=== PATIENT | male | born 1990 | race Caucasian/White ===

== ENCOUNTER 2017-11-07 15:50 | Emergency (ER) | payer OTHER, BC ==
[~2017-11-07] VITALS: Ht 182.9 cm; Wt 115.0 kg
[2017-11-07 15:59] VITALS: TEMP 37; Ht 182.9 cm; Wt 115.0 kg
[2017-11-07] MEDS ORDERED: SODIUM CHLORIDE 0.9% 1000ML 1,000 ML IV STA (16:29)
--- NOTE | 2017-11-07 16:32 | EMERGENCY ROOM VISIT NOTE ---
History Report prepared by Paz: Delia Moore Under the Supervision of: Dr. Erich Rios M.D. First contact with patient: 16:09 Chief Complaint: FALL Stated Complaint: FALL AT WORK. 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 He reports he put his foot down and it slide off the track and he slipped down about "12 inches" but landed on his bottom. The patient states his bottom hurts. He notes his leg was not hurting at the time and there were no cuts. The patient also states that a few days prior to his fall, he fell off a trailer and landed on his left leg. He is accompanied by his mother and father who report that his leg "doubled in size" last night. Walking worsens his pain. He denies any nausea, vomiting, diarrhea, fevers or chills. 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 A total of ten systems were reviewed and were otherwise negative. Past Medical & Surgical Surgical Problems: (1) Hx of tonsillectomy Family History FHx: cancer FHx: diabetes mellitus High blood pressure Social History Smoking Status: Never Smoker Smokeless Tobacco Use: No Alcohol Use: other (a little) Housing Status: lives alone Current/Historical Medications Scheduled Enoxaparin (Lovenox), 120 MG SC BID Allergies Coded Allergies: No Known Allergies (Unverified , 11/07/17) Physical Exam Vital Signs Date Time Temp Pulse Resp B/P (MAP) Pulse Ox O2 Delivery O2 Flow Rate FiO2 11/07/17 19:46 67 18 126/78 98 11/07/17 18:21 64 18 119/79 97 Room Air 11/07/17 17:01 56 11/07/17 15:59 37.0 83 20 132/77 100 Physical Exam GENERAL: Awake, alert, well-appearing, in no distress HENT: Normocephalic, atraumatic. Oropharynx unremarkable. EYES: Normal conjunctiva. Sclera non-icteric. NECK: Supple. No nuchal rigidity. FROM. No JVD. RESPIRATORY: Clear to auscultation. CARDIAC: Regular rate, normal rhythm. Extremities warm and well perfused. Pulses equal. ABDOMEN: Soft, non-distended. No tenderness to palpation. No rebound or guarding. No masses. RECTAL: Deferred. MUSCULOSKELETAL: Chest examination reveals no tenderness. The back is symmetrical on inspection without obvious abnormality. There is no CVA tenderness to palpation. No joint edema. LOWER EXTREMITIES: 3+ edema throughout the lower leg, no tenderness with modeling of the skin throughout, no crepitus, scattered areas of old skin abrasions, no acute lacerations or abrasions, distal motor sensory intact, triphasic in PT, DP, and popliteal a. NEURO: Normal sensorium. Distal motor sensory intact SKIN: No rash or jaundice noted. Medical Decision & Procedures ER Provider Diagnostic Interpretation: Radiology results as stated below per my review and radiologist interpretation: L TIBIA/FIBULA 2 VIEWS ROUTINE CLINICAL HISTORY: Pain and swelling following fall. COMPARISON: None FINDINGS: There is no acute fracture of the left tibia or fibula. Alignment of the left knee and ankle appears anatomic. IMPRESSION: No acute fracture of the left tibia or fibula. Electronically signed by: Garrison Murrell M.D. 11/07/2017 6:09 PM Dictated Date/Time: 11/07/2017 6:03 PM LEFT LOWER EXTREMITY VENOUS DOPPLER CLINICAL HISTORY: pain swelling mottling fall COMPARISON STUDY: No previous studies for comparison. TECHNIQUE: Sonography of the deep venous system of the left lower extremity was performed. Compression and augmentation were evaluated. FINDINGS: The left common femoral and superficial femoral veins are noncompressible and contain thrombus. Vessels are expanded. There is minimal flow within these vessels. IMPRESSION: Deep venous thrombus within the left common femoral and superficial femoral veins which is likely acute. Electronically signed by: Garrison Murrell M.D. 11/07/2017 6:16 PM L PELVIS/UNILATERAL HIP 2-3VIEWS CLINICAL HISTORY: Pain and swelling following fall. COMPARISON: None FINDINGS: The sacroiliac joints and symphysis pubis are intact. There is no acute fracture within the pelvis or the hips. Left hip joint space is preserved. There is mild osteophytosis of the left hip. There is apparent loss of height of the superior endplate of a lower lumbar vertebral body. IMPRESSION: 1. No acute fracture within the pelvis or hips. 2. Apparent age indeterminate loss of height of a vertebral body within the lower lumbar spine. Electronically signed by: Garrison Murrell M.D. 11/07/2017 6:07 PM Dictated Date/Time: 11/07/2017 6:05 PM L FEMUR 2 VIEWS ROUTINE CLINICAL HISTORY: pain swelling fall COMPARISON: None FINDINGS: There is no acute fracture of the left femur. Alignment of the left hip and knee appears anatomic. IMPRESSION: No acute fracture of the left femur. Electronically signed by: Garrison Murrell M.D. 11/07/2017 6:08 PM Dictated Date/Time: 11/07/2017 6:07 PM CHEST ONE VIEW PORTABLE CLINICAL HISTORY: Evaluate Fever/Sepsis. Recent fall. COMPARISON STUDY: No previous studies for comparison. FINDINGS: Lung volumes are normal. No pneumothorax or pleural effusion is noted. Cardiac size is normal. Mediastinal contours are normal. There is no evidence for pulmonary edema. IMPRESSION: No acute cardiopulmonary findings. Electronically signed by: Garrison Murrell M.D. 11/07/2017 6:04 PM Dictated Date/Time: 11/07/2017 6:04 PM Laboratory Results 11/07/17 16:55 Red Blood Count 4.75, Mean Corpuscular Volume 92.4, Mean Corpuscular Hemoglobin 32.2, Mean Corpuscular Hemoglobin Concent 34.9, Mean Platelet Volume 11.1, Neutrophils (%) (Auto) 58.9, Lymphocytes (%) (Auto) 21.0, Monocytes (%) (Auto) 11.6, Eosinophils (%) (Auto) 7.9, Basophils (%) (Auto) 0.2, Neutrophils # (Auto ) 5.03, Lymphocytes # (Auto) 1.79, Monocytes # (Auto) 0.99, Eosinophils # (Auto ) 0.67, Basophils # (Auto) 0.02 11/07/17 16:55 Test 11/07/17 16:55 11/07/17 17:02 11/07/17 19:00 White Blood Count 8.53 K/uL (4.8-10.8) Red Blood Count 4.75 M/uL (4.7-6.1) Hemoglobin 15.3 g/dL (14.0-18.0) Hematocrit 43.9 % (42-52) Mean Corpuscular Volume 92.4 fL (80-100) Mean Corpuscular Hemoglobin 32.2 pg (25-34) Mean Corpuscular Hemoglobin Concent 34.9 g/dl (32-36) Platelet Count 191 K/uL (130-400) Mean Platelet Volume 11.1 fL (7.4-10.4) Neutrophils (%) (Auto) 58.9 % Lymphocytes (%) (Auto) 21.0 % Monocytes (%) (Auto) 11.6 % Eosinophils (%) (Auto) 7.9 % Basophils (%) (Auto) 0.2 % Neutrophils # (Auto) 5.03 K/uL (1.4-6.5) Lymphocytes # (Auto) 1.79 K/uL (1.2-3.4) Monocytes # (Auto) 0.99 K/uL (0.11-0.59) Eosinophils # (Auto) 0.67 K/uL (0-0.5) Basophils # (Auto) 0.02 K/uL (0-0.2) RDW Standard Deviation 42.8 fL (36.4-46.3) RDW Coefficient of Variation 12.7 % (11.5-14.5) Immature Granulocyte % (Auto) 0.4 % Immature Granulocyte # (Auto) 0.03 K/uL (0.00-0.02) Erythrocyte Sedimentation Rate 6 mm/hr (0-14) Prothrombin Time 10.1 SECONDS (9.0-12.0) Prothromb Time International Ratio 1.0 (0.9-1.1) Activated Partial Thromboplast Time 23.8 SECONDS (21.0-31.0) Partial Thromboplastin Ratio 0.9 Anion Gap 5.0 mmol/L (3-11) Est Creatinine Clear Calc Drug Dose 128.6 ml/min Estimated GFR () 103.1 Estimated GFR (Non- 88.9 BUN/Creatinine Ratio 13.5 (10-20) Lactic Acid Level 1.3 mmol/L (0.4-2.0) Calcium Level 9.0 mg/dl (8.5-10.1) Total Bilirubin 0.4 mg/dl (0.2-1) Direct Bilirubin 0.1 mg/dl (0-0.2) Aspartate Amino Transf (AST/SGOT) 19 U/L (15-37) Alanine Aminotransferase (ALT/SGPT) 34 U/L (12-78) Alkaline Phosphatase 65 U/L (45-117) Total Creatine Kinase 327 U/L (39-308) Troponin I < 0.015 ng/ml (0-0.045) C-Reactive Protein 1.06 mg/dl (0-0.29) Pro-B-Type Natriuretic Peptide 90 pg/ml (0-450) Total Protein 7.6 gm/dl (6.4-8.2) Albumin 4.1 gm/dl (3.4-5.0) Lipase 220 U/L (73-393) Ethyl Alcohol mg/dL < 3.0 mg/dl (0-3) Urine Color YELLOW Urine Appearance CLEAR (CLEAR) Urine pH 5.0 (4.5-7.5) Urine Specific Burton 1.026 (1.000-1.030) Urine Protein NEG (NEG) Urine Glucose (UA) NEG (NEG) Urine Ketones TRACE (NEG) Urine Occult Blood NEG (NEG) Urine Nitrite NEG (NEG) Urine Bilirubin NEG (NEG) Urine Urobilinogen NEG (NEG) Urine Leukocyte Esterase NEG (NEG) Urine WBC (Auto) 1-5 /hpf (0-5) Urine RBC (Auto) 0-4 /hpf (0-4) Urine Hyaline Casts (Auto) 1-5 /lpf (0-5) Urine Epithelial Cells (Auto) 5-10 /lpf (0-5) Urine Bacteria (Auto) NEG (NEG) Laboratory results reviewed by me Medications Administered Medications (Trade) Dose Ordered Sig/Sudha Route Start Time Stop Time Status Last Admin Dose Admin Sodium Chloride 1,000 ml @ 999 mls/hr Q1H1M STAT IV 11/07/17 16:29 11/07/17 17:29 DC 11/07/17 16:59 999 MLS/HR Miscellaneous (Lovenox Teaching Kit) 1 ea NOW STAT N/A 11/07/17 18:21 11/07/17 18:23 DC 11/07/17 19:45 1 EA Oxycodone/ Acetaminophen (Percocet 5-325mg Tab) 1 tab NOW ONCE PO 11/07/17 18:30 11/07/17 18:31 DC 11/07/17 18:49 1 TAB Enoxaparin Sodium (Lovenox Inj) 120 mg NOW ONCE SQ 11/07/17 18:45 11/07/17 18:46 DC 11/07/17 19:35 120 MG ED Course 162: The patient was evaluated in room B4. A complete history and physical exam was performed. 1829: I reevaluated the patient. Discussed results and discharge instructions: He verbalized understanding and agreement. The patient is ready for discharge. Medical Decision I reviewed the patient's past medical history, medications, and the nursing notes as described above. Differential diagnosis: Etiologies such as cellulitis, fracture, dislocation, DVT, arterial insufficiency, cellulitis, necrotizing infection, rhabdomyolysis, sepsis, as well as others were entertained. The patient is a 27 y/o gentleman who presents to the emergency department LLE swelling per HPI. On arrival the patient is in NAD, AFVSS. On exam, the patient' s LLE has 3+ edema with mottling. No crepitus or warmth. Distal motor/sensory intact. Triphasic DP, PT, and pop with doppler. Plain films unremarkable. Duplex demonstrates femoral DVT. Labs unremarkable including wbc wnl. 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 However, given clear etiology for patient's edema, unlikley to have infectious process at this time. Unclear etiology to patient's DVT at this time. Patient's recent fall, per patient's description appears minor and, while possible, not likely to result in DVT. Findings d/w patient and patient is unsure about which oral anticoagulant to use and so agrees with plan for lovenox and will f/u with his pcp regarding further treatment as well as evaluation for possible genetic coagulopathy. Findings and plan for follow-up reviewed with patient. Patient agreeable and d/c'd per discharge instructions. Medication Reconcilliation Current Medication List: was personally reviewed by me Blood Pressure Screening Patient's blood pressure: Normal blood pressure Blood pressure disposition: Did not require urgent referral Impression Primary Impression: Acute deep vein thrombosis (DVT) of femoral vein Scribe Attestation The scribe's documentation has been prepared under my direction and personally reviewed by me in its entirety. I confirm that the note above accurately reflects all work, treatment, procedures, and medical decision making performed by me. Departure Information Dispostion Home / Self-Care Prescriptions Enoxaparin (LOVENOX) 120 Mg/0.8 Ml Inj 120 MG SC BID for 30 Days, #60 SYR Prov: Eirch Rios M.D. 11/07/17 Referrals No Doctor, Assigned (PCP) Patient Instructions ED DVT, My [facility] Additional Instructions Please follow up with your primary care physician on Thursday for re-evaluation and discuss transition to oral anticoagulation as well as testing for possible genetic susceptibility for blood clots. You were found to have a femoral vein DVT. Otherwise, your exam, lab results, and xrays did not show signs of an emergent condition at this time. Acetaminophen for pain as needed. Keep leg elevated and cherise bandage for compression to help with swelling. Return to the emergency department for worsening symptoms as described in the accompanying instructions.
[2017-11-07 17:08] LABS: BASO % 0.2 %; BASO ABS # 0.02 K/uL (0-0.2); EOS % 7.9 %; EOS ABS # 0.67 K/uL (0-0.5); HEMATOCRIT 43.9 % (42-52); HEMOGLOBIN 15.3 g/dL (14.0-18.0); IG# 0.03 K/uL (0.00-0.02); LYMPH ABS # 1.79 K/uL (1.2-3.4); MEAN CELL VOLUME 92.4 fL (80-100); MEAN CORPUSCULAR HEMOGLOBIN 32.2 pg (25-34); MEAN CORPUSCULAR HGB CONC 34.9 g/dl (32-36); MEAN PLATELET VOLUME 11.1 fL (7.4-10.4); MONO % 11.6 %; MONO ABS # 0.99 K/uL (0.11-0.59); NEUT % 58.9 %; NEUT ABS # 5.03 K/uL (1.4-6.5); PLATELET COUNT 191 K/uL (130-400); RED CELL DISTRIBUTION WIDTH CV 12.7 % (11.5-14.5); RED CELL DISTRIBUTION WIDTH SD 42.8 fL (36.4-46.3); WHITE BLOOD COUNT 8.53 K/uL (4.8-10.8)
[2017-11-07 17:18] LABS: PTT PATIENT 23.8 SECONDS (21.0-31.0)
[2017-11-07 17:30] LABS: ALBUMIN 4.1 gm/dl (3.4-5.0); ALT/SGPT 34 U/L (12-78); AST/SGOT 19 U/L (15-37); BLOOD UREA NITROGEN 15 mg/dl (7-18); CARBON DIOXIDE 27 mmol/L (21-32); CREATININE 1.12 mg/dl (0.60-1.40); GLUCOSE 91 mg/dl (70-99); LIPASE 220 U/L (73-393); POTASSIUM 4.2 mmol/L (3.5-5.1); SODIUM 140 mmol/L (136-145)
[2017-11-07 17:33] LABS: ALKALINE PHOSPHATASE 65 U/L (45-117); TOTAL PROTEIN 7.6 gm/dl (6.4-8.2)
--- NOTE | 2017-11-07 18:06 | DIAGNOSTIC IMAGING REPORT ---
CHEST ONE VIEW PORTABLE CLINICAL HISTORY: Evaluate Fever/Sepsis. Recent fall. COMPARISON STUDY: No previous studies for comparison. FINDINGS: Lung volumes are normal. No pneumothorax or pleural effusion is noted. Cardiac size is normal. Mediastinal contours are normal. There is no evidence for pulmonary edema. IMPRESSION: No acute cardiopulmonary findings. Electronically signed by: Garrison Murrell M.D. 11/07/2017 6:04 PM Dictated Date/Time: 11/07/2017 6:04 PM
--- NOTE | 2017-11-07 18:08 | DIAGNOSTIC IMAGING REPORT ---
L PELVIS/UNILATERAL HIP 2-3VIEWS CLINICAL HISTORY: Pain and swelling following fall. COMPARISON: None FINDINGS: The sacroiliac joints and symphysis pubis are intact. There is no acute fracture within the pelvis or the hips. Left hip joint space is preserved. There is mild osteophytosis of the left hip. There is apparent loss of height of the superior endplate of a lower lumbar vertebral body. IMPRESSION: 1. No acute fracture within the pelvis or hips. 2. Apparent age indeterminate loss of height of a vertebral body within the lower lumbar spine. Electronically signed by: Garrison Murrell M.D. 11/07/2017 6:07 PM Dictated Date/Time: 11/07/2017 6:05 PM
--- NOTE | 2017-11-07 18:09 | DIAGNOSTIC IMAGING REPORT ---
L FEMUR 2 VIEWS ROUTINE CLINICAL HISTORY: pain swelling fall COMPARISON: None FINDINGS: There is no acute fracture of the left femur. Alignment of the left hip and knee appears anatomic. IMPRESSION: No acute fracture of the left femur. Electronically signed by: Garrison Murrell M.D. 11/07/2017 6:08 PM Dictated Date/Time: 11/07/2017 6:07 PM
--- NOTE | 2017-11-07 18:10 | DIAGNOSTIC IMAGING REPORT ---
L TIBIA/FIBULA 2 VIEWS ROUTINE CLINICAL HISTORY: Pain and swelling following fall. COMPARISON: None FINDINGS: There is no acute fracture of the left tibia or fibula. Alignment of the left knee and ankle appears anatomic. IMPRESSION: No acute fracture of the left tibia or fibula. Electronically signed by: Garrison Murrell M.D. 11/07/2017 6:09 PM Dictated Date/Time: 11/07/2017 6:03 PM
--- NOTE | 2017-11-07 18:18 | DIAGNOSTIC IMAGING REPORT ---
LEFT LOWER EXTREMITY VENOUS DOPPLER CLINICAL HISTORY: pain swelling mottling fall COMPARISON STUDY: No previous studies for comparison. TECHNIQUE: Sonography of the deep venous system of the left lower extremity was performed. Compression and augmentation were evaluated. FINDINGS: The left common femoral and superficial femoral veins are noncompressible and contain thrombus. Vessels are expanded. There is minimal flow within these vessels. IMPRESSION: Deep venous thrombus within the left common femoral and superficial femoral veins which is likely acute. Electronically signed by: Garrison Murrell M.D. 11/07/2017 6:16 PM Dictated Date/Time: 11/07/2017 6:14 PM
[2017-11-07] MEDS ORDERED: ENOXAPARIN 1 MG/KG SQ STA (18:21)
[2017-11-07] MEDS ORDERED: LOVENOX TEACHING KIT STA (18:21)
[2017-11-07] MEDS ORDERED: OXYCODONE/ACETAMINOPHEN 5-325 TAB PO ONE (18:30)
[2017-11-07] MEDS ORDERED: ENOXAPARIN 120 MG/0.8 ML SYR SQ ONE (18:45)
[2017-11-07] MEDS ORDERED: LVNIS120 SC (19:00)
[2017-11-07 19:46] VITALS: BP 126/78; PULSE 67; O2SAT 98
== END 2017-11-07 19:48 | disposition home or self-care (01) ==
LOC: C.EDB 15:54
DX: I82.412 Acute embolism and thrombosis of left femoral vein (principal); Z83.3 Family history of diabetes mellitus